=== PATIENT | female | born 1940 | race Caucasian/White ===

== ENCOUNTER → 2023-09-01 | Outpatient (CLI) | payer OTHER | END | disposition home or self-care (01) | LOC: US 07:56 | PROVIDERS: ATTEND Nurse Practitioner Family | DX: S89.82XA Other specified injuries of left lower leg, initial encounter (principal); X58.XXXA Exposure to other specified factors, initial encounter; Y93.89 Activity, other specified; Y92.89 Other specified places as the place of occurrence of the external cause; Y99.8 Other external cause status ==